=== PATIENT | male | born 1965 | race Caucasian/White ===

== ENCOUNTER 2018-05-03 11:56 | Inpatient (IN) | payer BC ==
[2018-05-03] MEDS ORDERED: LEVALBUTEROL 1.25 MG/3 ML NEB ONE ×2 (13:10→15:48)
[2018-05-03] MEDS ORDERED: NA CHLORIDE 0.9% 500 ML ONE (13:10)
[2018-05-03] MEDS ORDERED: METHYLPREDNISOLONE 125 MG INJ ONE (13:10)
[2018-05-03] MEDS ORDERED: CEFTRIAXONE/SWI 1gm 1 GM/10 ML SYR ONE (13:11)
[2018-05-03 13:34] LABS: Protime INR 1.07
[2018-05-03 13:35] LABS: Absolute Lymphocytes (CBC) 1.3 K/uL (0.7-4.9); Absolute Monocytes 1.1 K/uL (0.1-1.3); Absolute Neutrophil 10.6 K/uL (1.8-8.0); Basophils % 0.7 % (0-1.3); Hematocrit 56.9 % (39.6-49.0); Lymphocytes % 9.3 % (15.3-44.8); MCV 98.9 fL (80-100); MPV 9.5 fL (7.6-11.3); Monocytes % 7.9 % (3.3-12.3); RBC Red Blood Cell Count 5.75 M/uL (4.33-5.43)
[2018-05-03 13:39] LABS: Potassium 4.2 mEq/L (3.6-5.0)
[2018-05-03 13:45] LABS: Albumin 4.8 g/dL (3.2-5.5); Bilirubin Direct 0.2 mg/dL (0-0.2); Bilirubin Total 0.7 mg/dL (0.3-1.2); Magnesium 2.2 mg/dL (1.8-2.5)
--- NOTE | 2018-05-03 14:06 | EKG ---
Test Date: 2018-05-03 Test Time: 12:09:26 Economic Consultant: BELA MEASUREMENT RESULTS: Intervals: Rate: 121 KS: 130 QRSD: 86 QT: 302 QTc: 428 [place]: P: 79 KS: 130 QRS: 70 T: 69 INTERPRETIVE STATEMENTS: Sinus tachycardia Biatrial enlargement Abnormal ECG No previous ECG available for comparison Electronically Signed On 05-03-18 14:05:33 CDT by El Flower
--- NOTE | 2018-05-03 14:23 | RAD REPORT ---
EXAM DESCRIPTION: Anya Single View05/03/2018 1:20 pm CLINICAL HISTORY: Shortness of breath COMPARISON: none FINDINGS: The lungs appear clear of acute infiltrate. The heart is normal size IMPRESSION: No acute abnormalities displayed. If patient's symptoms persist PA and lateral chest se luis would be recommended
[2018-05-03 15:31] LABS: Urine Blood NEGATIVE (NEG); Urine Glucose NEGATIVE (NEG); Urine Protein NEGATIVE (NEG); Urine Specific Gravity 1.015 (1.005-1.030); Urine pH 6.5 (5.0-7.0)
--- NOTE | 2018-05-03 15:59 | ER ---
Nurse's Notes [facility] Name: Huseyin Carreno Age: 52 yrs Sex: Male : 1965 Arrival Date: 05/03/2018 Time: 11:55 Bed 8 Private MD: Diagnosis: Failed outpatient treatment, COPD exacerbation Presentation: 05/03 11:55 Presenting complaint: Patient states: SOB. Pt states "It all started about 10 days ago aa5 when I was working and it was really hot and I got short of breath". Pt states "I've also been taking antibiotics for Pneumonia but they never did an x-ray or anything". Transition of care: patient was not received from another setting of care. Onset of symptoms was April 2018. Risk Assessment: Do you want to hurt yourself or someone else? Patient reports no desire to harm self or others. Care prior to arrival: None. 11:55 Method Of Arrival: Wheelchair aa5 11:55 Acuity: ZACK 3 aa5 13:20 Initial Sepsis Screen: Does the patient meet any 2 criteria? RR > 20 per min. HR > 90 sv bpm. Yes Does the patient have a suspected source of infection? No. Patient's initial sepsis screen is negative. Historical: - Allergies: 11:57 No Known Allergies; aa5 - PMHx: 11:57 COPD; Hypertension; aa5 - PSHx: 11:57 None; aa5 - Immunization history:: Pneumococcal vaccine status is unknown. - Social history:: Smoking status: Patient uses tobacco products, smokes one pack cigarettes per day. - Ebola Screening: : No symptoms or risks identified at this time. Screenin:20 Abuse screen: Denies threats or abuse. Denies injuries from another. Nutritional sv screening: No deficits noted. Tuberculosis screening: No symptoms or risk factors identified. Fall Risk None identified. Assessment: 13:15 General: Appears uncomfortable, well developed, Behavior is calm, cooperative, sv appropriate for age. Pain: Denies pain. Neuro: Level of Consciousness is awake, alert, obeys commands, Oriented to person, place, time, situation, Moves all extremities. Full function Gait is steady, Speech is normal. Cardiovascular: Heart tones S1 S2 present Patient's skin is warm and dry. Rhythm is sinus tachycardia. Respiratory: Reports shortness of breath at rest on exertion cough that is productive, persistent labored breathing since 10 days ago, pt stated that he went to see his PCP and was prescribed medications but his breathing has not improved. Airway is patent Respiratory effort is even, labored, Respiratory pattern is symmetrical, tachypnea Breath sounds are diminished bilaterally. GI: No signs and/or symptoms were reported involving the gastrointestinal system. : No signs and/or symptoms were reported regarding the genitourinary system. EENT: No signs and/or symptoms were reported regarding the EENT system. Derm: Skin is normal. Musculoskeletal: Range of motion: intact in all extremities. 13:45 Reassessment: Patient and/or family updated on plan of care and expected duration. Pain sv level reassessed. Patient is alert, oriented x 3, equal unlabored respirations, skin warm/dry/pink. Respiratory: Respiratory effort is even, labored, Respiratory pattern is symmetrical, tachypnea Breath sounds with wheezes bilaterally. 15:50 Reassessment: Patient and/or family updated on plan of care and expected duration. Pain sv level reassessed. Patient is alert, oriented x 3, equal unlabored respirations, skin warm/dry/pink. Respiratory: Respiratory effort is even, labored, Respiratory pattern is symmetrical, tachypnea Breath sounds with wheezes bilaterally. 16:15 Reassessment: Patient and/or family updated on plan of care and expected duration. Pain sv level reassessed. Patient is alert, oriented x 3, equal unlabored respirations, skin warm/dry/pink. Respiratory: Respiratory effort is even, unlabored, Respiratory pattern is symmetrical, tachypnea Breath sounds with wheezes bilaterally. 17:45 Reassessment: Patient and/or family updated on plan of care and expected duration. Pain sv level reassessed. Patient is alert, oriented x 3, equal unlabored respirations, skin warm/dry/pink. Patient states feeling better. Respiratory: Respiratory pattern is symmetrical, tachypnea. 19:46 Reassessment: Patient and/or family updated on plan of care and expected duration. Pain mg2 level reassessed. Patient is alert, oriented x 3, equal unlabored respirations, skin warm/dry/pink. patient sitting on bed. informed about the plan, still awaiting for the room. Vital Signs: 11:57 BP 167 / 103; Pulse 123; Resp 24 S; Temp 98.7(TE); Pulse Ox 90% on R/A; Weight 90.26 kg aa5 (R); Height 5 ft. 5 in. (165.10 cm) (R); Pain 0/10; 12:00 Pulse Ox 91% on 2 lpm NC; aa5 12:54 BP 183 / 109; Pulse 120; Resp 26; Pulse Ox 93% on 3 lpm NC; sv 13:30 BP 189 / 101; Pulse 126; Resp 29; Pulse Ox 94% on 3 lpm NC; sv 14:00 BP 167 / 90; Pulse 114; Resp 22; Pulse Ox 96% on 3 lpm NC; sv 14:30 BP 157 / 104; Pulse 113; Resp 22; Pulse Ox 97% on 3 lpm NC; sv 15:00 BP 176 / 107; Pulse 115; Resp 26; Pulse Ox 96% on 3 lpm NC; sv 15:30 BP 191 / 107; Pulse 113; Resp 26; Pulse Ox 94% on 3 lpm NC; sv 16:00 BP 176 / 105; Pulse 125; Resp 28; Pulse Ox 93% on 3 lpm NC; sv 16:30 BP 181 / 100; Pulse 122; Resp 24; Pulse Ox 3 lpm NC; sv 17:00 BP 182 / 99; Pulse 124; Resp 21; Pulse Ox 95% on 3 lpm NC; sv 17:57 BP 157 / 97; Pulse 118; Resp 26; Pulse Ox 94% on 3 lpm NC; sv 19:48 BP 170 / 85; Pulse 114; Resp 22; Pulse Ox 93% on 3 lpm NC; Pain 0/10; mg2 11:57 Body Mass Index 33.11 (90.26 kg, 165.10 cm) aa5 ED Course: 11:55 Patient arrived in ED. aa5 11:57 Triage completed. aa5 11:57 Arm band placed on. aa5 12:15 EKG done, by analytical tech. reviewed by Sumanth Nava MD. at1 12:32 Sumanth Nava MD is Attending Physician. kdr 12:50 First set of blood cultures drawn by wa. em1 13:01 Initial lab(s) drawn, by wa, sent to lab. Inserted saline lock: 20 gauge in right em1 antecubital area, using aseptic technique. Blood collected. 13:02 Reba Schuster RN is Primary Nurse. sv 13:15 Second set of blood cultures drawn by me. em1 13:20 XRAY Chest (1 view) In Process Unspecified. EDMS 13:20 X-ray completed. Portable x-ray completed in exam room. Patient tolerated procedure jb2 well. 13:20 Patient has correct armband on for positive identification. Bed in low position. Call sv light in reach. Side rails up X 1. Adult w/ patient. threat monitoring analyst on. Pulse ox on. NIBP on. Door closed. Head of bed elevated. 15:58 Pamela Urbina MD is Hospitalizing Provider. kdr 16:44 CT completed. Patient tolerated procedure well. Patient moved to CT via stretcher. vr Patient moved back from CT. 17:26 CT Chest For PE Angio Sent. sv 19:10 Report given to Tabby DEWITT and Karel DEWITT. sv 20:01 Primary Nurse role handed off by Reba Schuster RN sv 20:09 Pantera Suarez, ESDRAS is Primary Nurse. mg2 20:19 No provider procedures requiring assistance completed. Patient admitted, IV remains in mg2 place. Administered Medications: 13:20 Drug: SOLU-Medrol 125 mg Route: IVP; Site: right antecubital; sv 15:44 Follow up: Response: No adverse reaction sv 13:20 Drug: Xopenex (3) 1.25 mg Route: Inhalation; sv 13:20 Drug: NS 0.9% 500 ml Route: IV; Rate: bolus; Site: right antecubital; sv 13:50 Follow up: Response: No adverse reaction; IV Status: Completed infusion; IV Intake: sv 500ml 13:24 CANCELLED (Duplicate Order): Rocephin - (cefTRIAXone) 1 grams IVPB once over 30 mins; sv (mix in 50 mL NS) 13:25 Drug: Rocephin 1 grams Route: IV; Rate: calculated rate; Site: right antecubital; sv 13:30 Follow up: Response: No adverse reaction; IV Status: Completed infusion; IV Intake: 10mlsv 15:51 Drug: Xopenex (3) 1.25 mg Route: Inhalation; sv 16:19 Drug: cloNIDine 0.2 mg Route: PO; sv 17:26 Follow up: Response: No adverse reaction sv Intake: 13:30 IV: 10ml; Total: 10ml. sv 13:50 IV: 500ml; Total: 510ml. sv Output: 14:00 Urine: 300ml (Voided); Total: 300ml. sv 16:26 Urine: 300ml (Voided); Total: 600ml. sv Outcome: 15:59 Decision to Hospitalize by Provider. kdr 20:19 Admitted to Med/surg accompanied by nurse, via wheelchair, room 213, with oxygen, with mg2 chart, Report called to ESDRAS Moon 20:19 Condition: stable 20:19 Instructed on the need for admit, Demonstrated understanding of instructions. 21:08 Patient left the ED. mg2 Signatures: Dispatcher [employer] EDReba Lezama, RN RN Sumanth Ellsworth MD MD kdr Buechter, Jesse jb2 Martinez, Eric em1 Catrachita Quach, RN RN Esther Rivero Amanda, sorter lumber straightener EKG Tat1 Pantera Suarez RN RN mg2 Corrections: (The following items were deleted from the chart) 19:15 16:30 BP 181 / 100; Pulse 122bpm; Resp 24bpm; Pulse Ox 95% 02 15% Non-rebreather mask; sv sv 19:15 17:00 BP 182 / 99; Pulse 124bpm; Resp 21bpm; Pulse Ox 94% 02 15% Non-rebreather mask; svsv
--- NOTE | 2018-05-03 15:59 | EDPHYS ---
Physician Documentation [facility] Name: Huseyin Carreno Age: 52 yrs Sex: Male : 1965 Arrival Date: 05/03/2018 Time: 11:55 Bed 8 Private MD: ED Physician Sumanth Nava Historical: - Allergies: 05/03 11:57 No Known Allergies; aa5 - PMHx: 11:57 COPD; Hypertension; aa5 - PSHx: 11:57 None; aa5 - Immunization history:: Pneumococcal vaccine status is unknown. - Social history:: Smoking status: Patient uses tobacco products, smokes one pack cigarettes per day. - Ebola Screening: : No symptoms or risks identified at this time. Vital Signs: 11:57 BP 167 / 103; Pulse 123; Resp 24 S; Temp 98.7(TE); Pulse Ox 90% on R/A; Weight 90.26 kg aa5 (R); Height 5 ft. 5 in. (165.10 cm) (R); Pain 0/10; 12:00 Pulse Ox 91% on 2 lpm NC; aa5 12:54 BP 183 / 109; Pulse 120; Resp 26; Pulse Ox 93% on 3 lpm NC; sv 13:30 BP 189 / 101; Pulse 126; Resp 29; Pulse Ox 94% on 3 lpm NC; sv 14:00 BP 167 / 90; Pulse 114; Resp 22; Pulse Ox 96% on 3 lpm NC; sv 14:30 BP 157 / 104; Pulse 113; Resp 22; Pulse Ox 97% on 3 lpm NC; sv 15:00 BP 176 / 107; Pulse 115; Resp 26; Pulse Ox 96% on 3 lpm NC; sv 15:30 BP 191 / 107; Pulse 113; Resp 26; Pulse Ox 94% on 3 lpm NC; sv 16:00 BP 176 / 105; Pulse 125; Resp 28; Pulse Ox 93% on 3 lpm NC; sv 16:30 BP 181 / 100; Pulse 122; Resp 24; Pulse Ox 3 lpm NC; sv 17:00 BP 182 / 99; Pulse 124; Resp 21; Pulse Ox 95% on 3 lpm NC; sv 17:57 BP 157 / 97; Pulse 118; Resp 26; Pulse Ox 94% on 3 lpm NC; sv 19:48 BP 170 / 85; Pulse 114; Resp 22; Pulse Ox 93% on 3 lpm NC; Pain 0/10; mg2 11:57 Body Mass Index 33.11 (90.26 kg, 165.10 cm) aa5 MDM: 15:59 Patient medically screened. kdr 05/03 12:32 Order name: Basic Metabolic Panel; Complete Time: 15:31 kdr 05/03 12:32 Order name: BNP; Complete Time: 15:31 kdr 05/03 12:32 Order name: CBC with Diff; Complete Time: 15:31 kdr 05/03 12:32 Order name: Ckmb; Complete Time: 15:31 kdr 05/03 12:32 Order name: CPK; Complete Time: 15:31 kdr 05/03 12:32 Order name: LFT's; Complete Time: 15:31 kdr 05/03 12:32 Order name: Magnesium; Complete Time: 15:31 kdr 05/03 12:32 Order name: PT-INR; Complete Time: 15:31 kdr 05/03 12:32 Order name: Ptt, Activated; Complete Time: 15:31 kdr 05/03 12:32 Order name: Troponin (emerg Dept Use Only); Complete Time: 15:31 kdr 05/03 12:32 Order name: XRAY Chest (1 view); Complete Time: 15:31 kdr 05/03 12:32 Order name: Blood Culture Adult (2) kdr 05/03 14:01 Order name: Urine Dipstick--Ancillary (enter results); Complete Time: 15:36 ss 05/03 15:38 Order name: CT Chest For PE Angio kdr 05/03 12:32 Order name: EKG; Complete Time: 12:33 kdr 05/03 12:32 Order name: Cardiac monitoring; Complete Time: 17:53 kdr 05/03 12:32 Order name: EKG - Nurse/Tech; Complete Time: 17:53 kdr 05/03 12:32 Order name: IV Saline Lock; Complete Time: 13:01 kdr 05/03 12:32 Order name: Labs collected and sent; Complete Time: 13:01 kdr 05/03 12:32 Order name: O2 Per Protocol; Complete Time: 17:53 kdr 05/03 12:32 Order name: O2 Sat Monitoring; Complete Time: 17:53 kdr 05/03 17:12 Order name: CT; Complete Time: 18:14 EDMS 06/15 18:15 Order name: Diet Heart Healthy; Complete Time: 18:15 ss 05/03 12:32 Order name: Urine Dipstick-Ancillary (obtain specimen); Complete Time: 17:53 kdr Administered Medications: 13:20 Drug: SOLU-Medrol 125 mg Route: IVP; Site: right antecubital; sv 15:44 Follow up: Response: No adverse reaction sv 13:20 Drug: Xopenex (3) 1.25 mg Route: Inhalation; sv 13:20 Drug: NS 0.9% 500 ml Route: IV; Rate: bolus; Site: right antecubital; sv 13:50 Follow up: Response: No adverse reaction; IV Status: Completed infusion; IV Intake: sv 500ml 13:24 CANCELLED (Duplicate Order): Rocephin - (cefTRIAXone) 1 grams IVPB once over 30 mins; sv (mix in 50 mL NS) 13:25 Drug: Rocephin 1 grams Route: IV; Rate: calculated rate; Site: right antecubital; sv 13:30 Follow up: Response: No adverse reaction; IV Status: Completed infusion; IV Intake: 10mlsv 15:51 Drug: Xopenex (3) 1.25 mg Route: Inhalation; sv 16:19 Drug: cloNIDine 0.2 mg Route: PO; sv 17:26 Follow up: Response: No adverse reaction sv Disposition: 05/03/18 15:59 Hospitalization ordered by Pamela Urbina for Observation. Preliminary diagnosis is Failed outpatient treatment, COPD exacerbation. - Bed requested for Telemetry/MedSurg (observation). - Status is Observation. mg2 - Condition is Fair. - Problem is an ongoing problem. - Symptoms have improved. UTI on Admission? No Addendum: 05/20/2018 16:44 Addendum: CC: SOB HPI: The patient states that he was working outside about [address] and became SOB. He has had slowly worsening SOB. He denies any other or other focal ? . Addendum: ROS: Const: No fever, chills or weight loss Eyes: no visual changes or c/o, Neck: no pain or injury, CV: no CP or palpitations, Resp: SOB especially with exertion, mild cough, congestion or wheezing Abd: no n/v/d or pain, Back: no pain or injury, : no pain or bleeding, MS/Ext: no pain, injury, swelling, tingling, Skin: no lacerations, pain, injury, skin turgor good, Neuro: CN grossly intact and no other deficits, Psych: Appropriate for age, Allergy/Immunology: no rashes or other s/s, Endo: no evidence of polyuria, polydipsia, temperature control or other s/s . Addendum: Exam: Const: WDWN WM in mild distress, Head/Face: no injury, pain or deformity, Eyes: PERRLA, ENT: no pain, injury or bleeding, Neck: no pain, injury or deformity, full ROM Chest/Axilla: No pain, injury or deformity, CV: no rubs, gallops, murmurs, regular rate, Resp: Mildly labors breathing with wheezing inspiratory/expiratory Abd/GI: soft, NT, BS present in all quads and normal, Back: no injury or deformity, full ROM, MS/Extremity: no injury or deformity, FROM, distal pulses good and equal, Skin: no rashes, ecchymosis skin turgor good, Neuro: CN grossly intact, no other neuro deficits, Psych: appropriate for age, no SI/HI, no depression . Addendum: MDM (Admission - stable) All VS and nursing notes reviewed. The patient and/or family was counseled on the results and need for admission. The patient was admitted in stable condition. They were happy with the care received and the plan for admission and further evaluation and treatment. . Signatures: Dispatcher [employer] EDAdalgisa Brewer RN RN kl Verde, Stephanie, RN RN sv Rittger, Kevin, MD MD kdr Calderon, Audri, RN RN aa5 Pantera Suarez RN RN mg2 Corrections: (The following items were deleted from the chart) 05/03 13:24 13:03 Rocephin - (cefTRIAXone) 1 grams IVPB once over 30 mins; (mix in 50 mL NS) sv ordered. kdr 20:01 15:59 Hospitalization Ordered by Pamela Urbina MD for Observation. Preliminary kl diagnosis is Failed outpatient treatment, COPD exacerbation. Bed requested for Telemetry/MedSurg (observation). Status is Observation. Condition is Fair. Problem is an ongoing problem. Symptoms have improved. UTI on Admission? No. kdr 21:08 20:01 05/03/2018 15:59 Hospitalization Ordered by Pamela Urbina MD for Observation. mg2 Preliminary diagnosis is Failed outpatient treatment, COPD exacerbation. Bed requested for Telemetry/MedSurg (observation). Status is Observation. Condition is Fair. Problem is an ongoing problem. Symptoms have improved. UTI on Admission? No. kl
[2018-05-03] MEDS ORDERED: cloNIDine HCl 0.1 MG TAB ONE (16:16)
--- NOTE | 2018-05-03 17:12 | RAD REPORT ---
EXAM DESCRIPTION: CT - Chest For Pe Angio - 05/03/2018 4:58 pm CLINICAL HISTORY: Chest pain. Chest pain;COPD;Cough;Fever COMPARISON: Chest Single View dated 05/03/2018 TECHNIQUE: CT angiogram of the pulmonary arteries was performed with MIP. All CT scans are performed using dose optimization technique as appropriate and may include automated exposure control or mA/KV adjustment according to patient size. FINDINGS: No evidence of pulmonary thromboembolism. No acute aortic finding demonstrated. Small areas of ground-glass opacity in both posterior bases as well as the lingula and right middle l obe may represent alveolitis/atypical pneumonia. No significant pericardial or pleural fluid. No concerning bony finding. IMPRESSION: No evidence of pulmonary thromboembolism. Scattered areas of ground-glass opacity greatest in the lung bases probably represents alveolitis/aty pical pneumonia.
[2018-05-03] MEDS ORDERED: IPRATROPIUM BROM 0.5MG/2.5ML ONE ×2 (20:30→23:16)
[2018-05-03] MEDS ORDERED: ALBUTEROL 2.5 MG/3 ML NEB SOL ONE ×2 (20:30→23:16)
[2018-05-03] MEDS ORDERED: ALBUTEROL 2.5 MG/3 ML NEB SOL NEB SCH (21:21)
[2018-05-03] MEDS ORDERED: IPRATROPIUM BROM 0.5MG/2.5ML NEB SCH (21:21)
[2018-05-03] MEDS ORDERED: ACETAMINOPHEN 500 MG TAB PO PRN (21:21)
--- NOTE | 2018-05-03 21:44 | P.HP ---
Certification for Inpatient With expected LOS: >2 Midnights Patient will require the following post-hospital care: None Practitioner: I am a practitioner with admitting privileges, knowledge of patient current condition, hospital course, and medical plan of care. Services: Services provided to patient in accordance with Admission requirements found in Title 42 Section 412.3 of the Code of Federal Regulations Patient History Date of Service: 05/03/18 Primary Care Provider: Out of State Reason for admission: COPD exacerbation History of Present Illness: Pt states he went to his work clinic 10 days ago. Placed on cipro without improvement in his symptoms. Returned to clinic 5 days ago and pt rec'd second antibiotic of omnicef. Pt states he has not been able to walk ten yards without fatigue and even had a syncopal episode last pm trying to get to the bathroom. Left forehead contusion. No vomiting, headache, or altered mental state Allergies No Known Allergies Allergy (Unverified 05/03/18 19:10) Home medications list reviewed: Yes (Lisinopril 20mg po daily) - Past Medical/Surgical History Has patient received pneumonia vaccine in the past: No Diabetic: No -: COPD -: HTN Past Surgical History: Patient denies surgical history Psychosocial/ Personal History: Pt working down here from [place]. Lives with Spouse. Pt and have 2 children - Family History Family History: Reviewed- Non-Contributory - Social History Smoking Status: Current every day smoker Counseled patient to stop smoking for: less than 10 minutes Smoking therapy provided: No Patient receptive to therapy: No Alcohol use: Yes CD- Drugs: No Caffeine use: No Place of Residence: Home Review of Systems General: Chills, Weakness, Malaise Eyes: Unremarkable ENT: Unremarkable Respiratory: Cough, Shortness of Breath, SOB with Excertion, Pleuritic Pain, Wheezing Cardiovascular: Chest Pain, Light Headedness Gastrointestinal: Unremarkable Genitourinary: Unremarkable Musculoskeletal: Unremarkable Integumentary: Unremarkable Neurological: Weakness, As per HPI Lymphatics: Unremarkable Physical Examination - Vital Signs Temperature: 98.5 F Blood Pressure: 173/83 Pulse: 121 Respirations: 18 Pulse Ox (%): 92 - Physical Exam General: Alert, In no apparent distress, Disheveled, Mild distress HEENT: Atraumatic, Normocephalic Neck: 2+ carotid pulse no bruit Respiratory: Expiratory wheezes, Inspiratory wheezes Cardiovascular: No edema Capillary refill: <2 Seconds Gastrointestinal: Normal bowel sounds Musculoskeletal: No clubbing, No swelling Integumentary: No rashes, No breakdown Neurological: Abnormal strength Lymphatics: No axilla or inguinal lymphadenopathy External genitalia: Deferred Rectal: Deferred - Studies Laboratory Data (last 24 hrs) 05/03/18 12:50: PT 12.6 H, INR 1.07, APTT 28.5 05/03/18 12:50: WBC 14.1 H, Hgb 19.0 H, Hct 56.9 H, Plt Count 206 05/03/18 12:50: B-Natriuretic Peptide 12 05/03/18 12:50: Sodium 138, Potassium 4.2, BUN 11, Creatinine 0.97, Glucose 120 , Magnesium 2.2, Total Bilirubin 0.7, AST 43 H, ALT 63 H, Alkaline Phosphatase 111 Assessment and Plan - Problems (Diagnosis) (1) Pneumonia Current Visit: Yes Status: Acute Plan: Levaquin po 500mg Qualifiers: Pneumonia type: due to unspecified organism (2) COPD (chronic obstructive pulmonary disease) Current Visit: Yes Status: Acute Plan: IV steroids, neb treatment, O2 prn, continuous pulse ox Qualifiers: COPD type: COPD with acute exacerbation Qualified Code(s): J44.1 - Chronic obstructive pulmonary disease with (acute) exacerbation - Advance Directives Does patient have a Living Will: No Does patient have a Durable POA for Healthcare: No
[2018-05-03] MEDS: ENOXAPARIN 40 MG/0.4 ML SQ SCH (21:55)
[2018-05-03] MEDS: NA CHLORIDE 0.9% 1,000 ML IV SCH (21:55)
[2018-05-03] MEDS: METHYLPREDNISOLONE 40 MG INJ IV SCH (21:55)
[2018-05-03] MEDS: ALBUTEROL 2.5 MG/3 ML NEB SOL NEB SCH (23:20)
[2018-05-03] MEDS: IPRATROPIUM BROM 0.5MG/2.5ML NEB SCH (23:20)
[2018-05-04] MEDS: METHYLPREDNISOLONE 40 MG INJ IV SCH ×3 (00:06→16:52)
[2018-05-04] MEDS: ALBUTEROL 2.5 MG/3 ML NEB SOL NEB SCH ×3 (04:02→11:16)
[2018-05-04] MEDS: IPRATROPIUM BROM 0.5MG/2.5ML NEB SCH ×5 (04:02→19:40)
[2018-05-04 05:22] LABS: Absolute Lymphocytes (CBC) 0.8 K/uL (0.7-4.9); Absolute Monocytes 0.1 K/uL (0.1-1.3); Absolute Neutrophil 14.6 K/uL (1.8-8.0); Basophils % 0.1 % (0-1.3); Hematocrit 51.1 % (39.6-49.0); Lymphocytes % 4.9 % (15.3-44.8); MCH 33.2 pg (27.0-35.0); Monocytes % 0.9 % (3.3-12.3); RBC Red Blood Cell Count 5.16 M/uL (4.33-5.43)
[2018-05-04 05:31] LABS: Potassium 4.8 mEq/L (3.6-5.0)
[2018-05-04] MEDS: NA CHLORIDE 0.9% 1,000 ML IV SCH (05:31)
[2018-05-04] MEDS ORDERED: PNEUMOCOCCAL VACCINE 0.5 ML IMVAC ONE (06:00)
[2018-05-04 06:20] LABS: Blood Morphology Comment NOT SEEN (NOT SEEN); Platelet Estimate ADEQ
[2018-05-04] MEDS ORDERED: HYDRALAZINE HCL 20 MG/ML VIAL IV ONE (06:40)
[2018-05-04] MEDS: levoFLOXacin 500 MG TAB PO SCH (08:13)
[2018-05-04] MEDS: ASPIRIN EC 81 MG TAB PO SCH (08:14)
[2018-05-04] MEDS: LORazepam 2 MG/ML VIAL IV PRN (09:57)
[2018-05-04] MEDS: LISINOPRIL 20 MG TAB PO SCH ×2 (11:38→21:12)
--- NOTE | 2018-05-04 11:38 | P.PN ---
Subjective Date of Service: 05/04/18 Primary Care Provider: Out of State Chief Complaint: COPD exacerbation Subjective: Improving (Patient was a little agitated today he is an alcoholic also smoker complains of orthopnea doing better at the time of my evaluation he was struggling this morning a BiPAP ordered) Review of Systems Respiratory: Cough, Shortness of Breath Physical Examination - Vital Signs Temperature: 98.3 F Blood Pressure: 179/89 Pulse: 129 Respirations: 54 Pulse Ox (%): 97 - Physical Exam General: Alert, Oriented x3 HEENT: Atraumatic Neck: Supple Respiratory: Expiratory wheezes Cardiovascular: No edema, Normal S1 S2 Gastrointestinal: Normal bowel sounds, Soft and benign - Studies Laboratory Data (last 24 hrs) 05/03/18 12:50: PT 12.6 H, INR 1.07, APTT 28.5 05/03/18 12:50: WBC 14.1 H, Hgb 19.0 H, Hct 56.9 H, Plt Count 206 05/03/18 12:50: B-Natriuretic Peptide 12 05/03/18 12:50: Sodium 138, Potassium 4.2, BUN 11, Creatinine 0.97, Glucose 120 , Magnesium 2.2, Total Bilirubin 0.7, AST 43 H, ALT 63 H, Alkaline Phosphatase 111 Assessment & Plan - Problems (Diagnosis) (1) COPD exacerbation Current Visit: Yes Status: Acute Plan: Tobar is 52 years of age she lives in [place] in not see a regular physician was admitted with a 10 day history of worsening cough congestion shortness of breath is a smoker alcoholic most likely years an exacerbation of underlying COPD patient's blood pressure is little elevated continue with bronchodilators steroids add Dulera possible discharge tomorrow (2) Alcohol abuse Current Visit: Yes Status: Acute Plan: Patient is 52 years of age alcoholic continue with Ativan and thiamine (3) Hypertension Current Visit: Yes Status: Acute Plan: Resume home medications Qualifiers: Hypertension type: essential hypertension Qualified Code(s): I10 - Essential (primary) hypertension
[2018-05-04] MEDS: METOPROLOL TAR 25 MG TAB PO SCH ×2 (15:48→16:54)
[2018-05-04] MEDS: ENOXAPARIN 40 MG/0.4 ML SQ SCH (16:52)
[2018-05-04] MEDS: DULERA 200/5 (MOMETASONE/FORMOTEROL) INHALER IH SCH (21:09)
[2018-05-04] MEDS: LORAZEPAM 1 MG TABLET PO PRN (21:12)
[2018-05-05] MEDS: METHYLPREDNISOLONE 40 MG INJ IV SCH ×3 (01:05→18:03)
[2018-05-05] MEDS: ALBUTEROL 2.5 MG/3 ML NEB SOL NEB PRN ×3 (01:14→13:15)
[2018-05-05] MEDS: IPRATROPIUM BROM 0.5MG/2.5ML NEB SCH ×4 (01:15→20:48)
[2018-05-05] MEDS: LORazepam 2 MG/ML VIAL IV PRN ×3 (01:27→20:32)
[2018-05-05] MEDS: LORAZEPAM 1 MG TABLET PO PRN (04:29)
[2018-05-05] MEDS: METOPROLOL TAR 25 MG TAB PO SCH ×2 (05:07→18:05)
[2018-05-05 05:13] LABS: MCH 33.4 pg (27.0-35.0); MCV 100.6 fL (80-100); MPV 9.9 fL (7.6-11.3); RBC Red Blood Cell Count 4.98 M/uL (4.33-5.43)
[2018-05-05 06:18] LABS: Potassium 4.9 mEq/L (3.6-5.0); Thyroid Stimulating Hormone 1.24 uIU/mL (0.34-5.60)
[2018-05-05] MEDS: LISINOPRIL 20 MG TAB PO SCH ×2 (08:35→20:32)
[2018-05-05] MEDS: MULTIVITAMIN TAB PO SCH (08:35)
[2018-05-05] MEDS: levoFLOXacin 500 MG TAB PO SCH (08:35)
[2018-05-05] MEDS: DULERA 200/5 (MOMETASONE/FORMOTEROL) INHALER IH SCH (08:38)
[2018-05-05] MEDS: ASPIRIN EC 81 MG TAB PO SCH (08:43)
[2018-05-05] MEDS ORDERED: THIAMINE HCL 100 MG TABLET PO SCH (09:00)
--- NOTE | 2018-05-05 10:37 | P.PN ---
Subjective Date of Service: 05/05/18 Primary Care Provider: Out of State Chief Complaint: COPD exacerbation alcohol withdrawal Patient is hallucinating agitated and requiring Ativan currently on BiPAP at bedside Review of Systems is unable to be obtained Physical Examination - Vital Signs Temperature: 99.1 F Blood Pressure: 173/92 Pulse: 105 Respirations: 24 Pulse Ox (%): 91 - Physical Exam General: Unresponsive Respiratory: Expiratory wheezes Cardiovascular: No edema, Normal S1 S2 Assessment & Plan - Problems (Diagnosis) (1) COPD exacerbation Current Visit: Yes Status: Acute Plan: Patient admitted with COPD exacerbation continue with bronchodilators and steroids (2) Alcohol abuse Current Visit: Yes Status: Acute Plan: Alcohol withdrawal continue with thiamine and Ativan start patient on banana bag (3) Hypertension Current Visit: Yes Status: Acute Plan: Resume home medications blood pressure still elevated Qualifiers: Hypertension type: essential hypertension Qualified Code(s): I10 - Essential (primary) hypertension (4) Pneumonia Current Visit: Yes Status: Acute Plan: Patient's white count is increased significantly add Zosyn repeat chest x-ray cultures are so far negative Qualifiers: Pneumonia type: due to unspecified organism
[2018-05-05] MEDS ORDERED: Pharmacy Consult 1 EA XX PRN (10:38)
[2018-05-05] MEDS: PIPER/TAZO/NS 3.375gm 3.375 GM/100 ML BAG IVPB SCH ×2 (11:40→18:03)
[2018-05-05] MEDS: FOLIC ACID 1 MG, MULTIVITAMINS INJ 10 ML, THIAMINE HCL 100 MG in NA CHLORIDE 0.9% 1,000 ML IV SCH (11:40)
--- NOTE | 2018-05-05 12:30 | RAD REPORT ---
EXAM DESCRIPTION: RAD - Chest Single View - 05/05/2018 12:24 pm CLINICAL HISTORY: Possible pneumonia Chest pain. COMPARISON: Chest Single View dated 05/03/2018; Chest For Pe Angio dated 05/03/2018 FINDINGS: Portable technique limits examination quality. Ill-defined opacities in the medial right lung base appear unchanged to slightly progressive. The linnette gs are otherwise clear. The heart is upper limit normal in size. No displaced fractures. IMPRESSION: Slight progression in ill-defined opacities medial right lung base.
[2018-05-05] MEDS ORDERED: VANCOMYCIN 2.25 GM in NA CHLORIDE 0.9% 500 ML IVPB ONE (16:00)
[2018-05-05] MEDS: ENOXAPARIN 40 MG/0.4 ML SQ SCH (18:03)
[2018-05-05] MEDS: ARFORMOTEROL TARTRATE 15 MCG/2 ML VIAL.NEB NEB SCH (20:48)
[2018-05-06] MEDS: PIPER/TAZO/NS 3.375gm 3.375 GM/100 ML BAG IVPB SCH ×3 (00:54→17:40)
[2018-05-06] MEDS: METHYLPREDNISOLONE 40 MG INJ IV SCH ×2 (00:55→09:26)
[2018-05-06] MEDS: IPRATROPIUM BROM 0.5MG/2.5ML NEB SCH ×4 (01:50→19:42)
[2018-05-06] MEDS: LORazepam 2 MG/ML VIAL IV PRN (04:26)
[2018-05-06 05:04] LABS: Absolute Lymphocytes (CBC) 0.5 K/uL (0.7-4.9); Absolute Monocytes 0.7 K/uL (0.1-1.3); Absolute Neutrophil 18.9 K/uL (1.8-8.0); Basophils % 0.4 % (0-1.3); Hematocrit 50.5 % (39.6-49.0); Lymphocytes % 2.5 % (15.3-44.8); MCH 33.4 pg (27.0-35.0); MPV 9.9 fL (7.6-11.3); Monocytes % 3.2 % (3.3-12.3); RBC Red Blood Cell Count 4.99 M/uL (4.33-5.43)
[2018-05-06] MEDS: METOPROLOL TAR 25 MG TAB PO SCH (05:32)
[2018-05-06 05:36] LABS: Albumin 3.6 g/dL (3.2-5.5); Bilirubin Total 0.5 mg/dL (0.3-1.2); Potassium 4.7 mEq/L (3.6-5.0)
[2018-05-06] MEDS: ARFORMOTEROL TARTRATE 15 MCG/2 ML VIAL.NEB NEB SCH ×2 (07:47→19:42)
[2018-05-06] MEDS: FOLIC ACID 1 MG, MULTIVITAMINS INJ 10 ML, THIAMINE HCL 100 MG in NA CHLORIDE 0.9% 1,000 ML IV SCH (09:26)
[2018-05-06] MEDS: LISINOPRIL 20 MG TAB PO SCH ×2 (09:26→21:08)
[2018-05-06] MEDS: ASPIRIN EC 81 MG TAB PO SCH (09:26)
[2018-05-06] MEDS: MULTIVITAMIN TAB PO SCH (09:26)
--- NOTE | 2018-05-06 09:44 | RAD REPORT ---
EXAM DESCRIPTION: RAD - Chest Pa And Lat (2 Views) - 05/06/2018 9:24 am CLINICAL HISTORY: COPD, pneumonia COMPARISON: May 05, May 03 TECHNIQUE: PA and lateral views of the chest were obtained. FINDINGS: The lungs are normal volume. Trachea is midline. Interstitial markings are diffusely promi nent. More pronounced interstitial and alveolar opacification in the right lung base noted and not cl early different. Heart size is normal and central vasculature is within normal limits. No pleural effusion or pneumothorax seen. No acute bony finding noted. No aortic abnormality. IMPRESSION: Patchy lung base opacities are not substantially different from May 05 comparison. No new or progressive process suspected.
[2018-05-06] MEDS ORDERED: VANCOMYCIN 1.75 GM in NA CHLORIDE 0.9% 500 ML IVPB SCH (10:00)
[2018-05-06] MEDS ORDERED: SPIRONOLACTONE 25 MG TABLET PO SCH (12:21)
--- NOTE | 2018-05-06 12:23 | P.PN ---
Subjective Date of Service: 05/06/18 Primary Care Provider: Out of State Chief Complaint: COPD exacerbation alcohol withdrawal Patient is doing better he is more alert responsive cooperative on nasal cannula oxygen Review of Systems General: Weakness Respiratory: Cough, Shortness of Breath Physical Examination - Vital Signs Temperature: 98.0 F Blood Pressure: 171/94 Pulse: 89 Respirations: 19 Pulse Ox (%): 96 - Physical Exam General: Alert, Oriented x3 Neck: Supple Respiratory: Expiratory wheezes Cardiovascular: No edema, Regular rate/rhythm Assessment & Plan - Problems (Diagnosis) (1) COPD exacerbation Onset Date: 05/06/18 Current Visit: Yes Status: Acute Plan: Patient admitted with COPD exacerbation he may well have a pneumonia is white count is declining continue with antibiotics blood cultures and negative chest x -ray abnormal patient's blood cultures and negative change to p.o. prednisone Dc vancomycin once a white count is declined significantly changed to p.o. levofloxacin (2) Alcohol abuse Onset Date: 05/06/18 Current Visit: Yes Status: Acute Plan: A patient is improving (3) Hypertension Onset Date: 05/06/18 Current Visit: Yes Status: Acute Plan: Blood pressure still elevated Qualifiers: Hypertension type: essential hypertension Qualified Code(s): I10 - Essential (primary) hypertension (4) Pneumonia Onset Date: 05/06/18 Current Visit: Yes Status: Acute Plan: Patient's white count is increased significantly add Zosyn repeat chest x-ray cultures are so far negative Qualifiers: Pneumonia type: due to unspecified organism
--- NOTE | 2018-05-06 12:47 | P.PN ---
Subjective Date of Service: 05/06/18 Primary Care Provider: Out of State Chief Complaint: COPD exacerbation alcohol withdrawal Subjective: Improving Physical Examination - Vital Signs Temperature: 98.0 F Blood Pressure: 171/94 Pulse: 89 Respirations: 19 Pulse Ox (%): 96 - Physical Exam General: Alert, In no apparent distress, Oriented x3, Cooperative HEENT: Atraumatic, Mucous membr. moist/pink Neck: Supple Respiratory: Expiratory wheezes (Bilateral) Cardiovascular: Normal pulses, Regular rate/rhythm Gastrointestinal: Normal bowel sounds, Soft and benign, Non-distended, No tenderness, No masses, No rebound, No guarding Musculoskeletal: No erythema, No tenderness, No warmth Integumentary: No tenderness/swelling, No erythema, No warmth, No cyanosis Neurological: Normal speech, Normal strength at 5/5 x4 extr, Normal tone, Normal affect - Studies Medications List Reviewed: Yes Assessment & Plan - Problems (Diagnosis) (1) Obesity Current Visit: Yes Status: Chronic Plan: Will address lifestyle modification education. Qualifiers: Obesity type: due to excess calories Obesity classification: adult class 1 (BMI 30 - 34.9) Serious obesity comorbidity presence: with serious comorbidity Body mass index: BMI 33.0-33.9 Qualified Code(s): E66.09 - Other obesity due to excess calories; Z68.33 - Body mass index (BMI) 33.0-33.9, adult (2) GERD (gastroesophageal reflux disease) Current Visit: Yes Status: Suspected Plan: Will continue with PPI. Qualifiers: Esophagitis presence: esophagitis presence not specified Qualified Code(s) : K21.9 - Gastro-esophageal reflux disease without esophagitis (3) Alcohol abuse Onset Date: 05/06/18 Current Visit: Yes Status: Chronic Plan: Address alcohol cessation. Will monitor for alcohol withdrawal. (4) COPD (chronic obstructive pulmonary disease) Onset Date: 05/06/18 Current Visit: Yes Status: Acute Plan: Continue with COPD treatment. Will monitor closely. Patient will need PCP locally along with COPD medication at discharge. Patient may require home oxygen. Qualifiers: COPD type: COPD with acute exacerbation Qualified Code(s): J44.1 - Chronic obstructive pulmonary disease with (acute) exacerbation (5) Hypertension Onset Date: 05/06/18 Current Visit: Yes Status: Chronic Plan: Will continue to adjust medication for better control. Qualifiers: Hypertension type: essential hypertension Qualified Code(s): I10 - Essential (primary) hypertension (6) Pneumonia Onset Date: 05/06/18 Current Visit: Yes Status: Acute Plan: Continue with medication. Qualifiers: Pneumonia type: due to unspecified organism Laterality: bilateral Lung location: lower lobe of lung Qualified Code(s): J18.1 - Lobar pneumonia, unspecified organism (7) Tobacco abuse Current Visit: Yes Status: Chronic Plan: Address cessation. Discharge Plan: Home Plan to discharge in: 24 Hours - Code Status/Comfort Care Code Status Assessed: Yes Code Status: Full Code Time Spent Managing Pts Care (In Minutes): 55
--- NOTE | 2018-05-06 16:56 | ECHO ---
HEIGHT: 5 ft 5 in WEIGHT: 199 lb 1 oz DATE OF STUDY: 05/06/[address]: Oh Varma DO 2-DIMENSIONAL: YES M.MODE: YES DOPPLER: YES COLOR FLOW: YES TDS: YES PORTABLE: DEFINITY: BUBBLE STUDY: DIAGNOSIS: HYPERTENTION, SHORTNESS OF BREATH. CARDIAC HISTORY: CATHERIZATION: NO SURGERY: NO PROSTHETIC VALVE: NO PACEMAKER: NO MEASUREMENTS (cm) DIASTOLIC (NORMALS) SYSTOLIC (NORMALS) IVSd 1.0 (0.6-1.2) LA Diam 3.0 (1.9-4.0) LVEF 54% LVIDd 4.7 (3.5-5.7) LVIDs 3.4 (2.0-3.5) %FS 28% LVPWd 0.9 (0.6-1.2) Ao Diam 2.4 (2.0-3.7) 2 DIMENSIONAL ASSESSMENT: RIGHT ATRIUM: NORMAL LEFT ATRIUM: NORMAL RIGHT VENTRICLE: NORMAL LEFT VENTRICLE: NORMAL TRICUSPID VALVE: NORMAL MITRAL VALVE: NORMAL PULMONIC VALVE: NORMAL AORTIC VALVE: NORMAL PERICARDIAL EFFUSION: NONE AORTIC ROOT: NORMAL LEFT VENTRICULAR WALL MOTION: NORMAL DOPPLER/COLOR FLOW: NORMAL COMMENTS: NORMAL TWO DIMENSIONAL ECHOCARDIOGRAM WITH DOPPLER TECHNOLOGIST: VICKIE BROOKS
[2018-05-06] MEDS: ENOXAPARIN 40 MG/0.4 ML SQ SCH (17:40)
[2018-05-06] MEDS: THIAMINE HCL 100 MG TABLET PO SCH (17:40)
[2018-05-06] MEDS: FOLIC ACID 1 MG TABLET PO SCH (17:40)
[2018-05-06] MEDS: METOPROLOL TAR 50 MG TAB PO SCH (17:40)
[2018-05-06] MEDS: LORAZEPAM 1 MG TABLET PO PRN (21:08)
[2018-05-06] MEDS: predniSONE 20 MG TAB PO SCH (21:08)
[2018-05-07] MEDS: PIPER/TAZO/NS 3.375gm 3.375 GM/100 ML BAG IVPB SCH ×3 (00:27→17:12)
[2018-05-07] MEDS: IPRATROPIUM BROM 0.5MG/2.5ML NEB SCH ×4 (01:30→19:56)
[2018-05-07 04:52] LABS: Hematocrit 48.1 % (39.6-49.0); MCH 33.3 pg (27.0-35.0); MCV 99.9 fL (80-100); MPV 9.4 fL (7.6-11.3); RBC Red Blood Cell Count 4.82 M/uL (4.33-5.43)
[2018-05-07] MEDS: METOPROLOL TAR 50 MG TAB PO SCH ×2 (05:35→17:13)
[2018-05-07] MEDS: PANTOPRAZOLE 40MG TABLET PO SCH (05:35)
[2018-05-07] MEDS: ARFORMOTEROL TARTRATE 15 MCG/2 ML VIAL.NEB NEB SCH ×2 (07:57→19:56)
[2018-05-07 08:13] LABS: Urine Appearance CLEAR; Urine Bilirubin NEGATIVE (NEG); Urine Blood NEGATIVE (NEG); Urine Color YELLOW; Urine Glucose TRACE (NEG); Urine Protein NEGATIVE (NEG); Urine Specific Gravity 1.025 (1.005-1.030); Urine Urobilinogen 0.2 mg/dL (0.2-1.0); Urine pH 6.5 (5.0-7.0)
--- NOTE | 2018-05-07 08:23 | P.PN ---
Subjective Date of Service: 05/07/18 Primary Care Provider: Out of State([place]) Chief Complaint: COPD exacerbation alcohol withdrawal Subjective: Improving Physical Examination - Vital Signs Temperature: 97.2 F Blood Pressure: 152/84 Pulse: 82 Respirations: 18 Pulse Ox (%): 98 - Physical Exam General: Alert, In no apparent distress, Oriented x3, Cooperative HEENT: Atraumatic, Mucous membr. moist/pink Neck: Supple Respiratory: Expiratory wheezes (Bilateral, improved) Cardiovascular: Normal pulses, Regular rate/rhythm Gastrointestinal: Normal bowel sounds, Soft and benign, Non-distended, No tenderness, No masses, No rebound, No guarding Musculoskeletal: No erythema, No tenderness, No warmth Integumentary: No tenderness/swelling, No erythema, No warmth, No cyanosis Neurological: Normal speech, Normal strength at 5/5 x4 extr, Normal tone, Normal affect - Studies Medications List Reviewed: Yes Assessment & Plan - Problems (Diagnosis) (1) Obesity Current Visit: Yes Status: Chronic Plan: Will continue to address lifestyle modification education. Qualifiers: Obesity type: due to excess calories Obesity classification: adult class 1 (BMI 30 - 34.9) Serious obesity comorbidity presence: with serious comorbidity Body mass index: BMI 33.0-33.9 Qualified Code(s): E66.09 - Other obesity due to excess calories; Z68.33 - Body mass index (BMI) 33.0-33.9, adult (2) GERD (gastroesophageal reflux disease) Current Visit: Yes Status: Suspected Plan: Will continue with PPI. Qualifiers: Esophagitis presence: esophagitis presence not specified Qualified Code(s) : K21.9 - Gastro-esophageal reflux disease without esophagitis (3) Alcohol abuse Onset Date: 05/06/18 Current Visit: Yes Status: Chronic Plan: Will continue to address alcohol cessation. Will monitor for alcohol withdrawal. (4) COPD (chronic obstructive pulmonary disease) Onset Date: 05/06/18 Current Visit: Yes Status: Acute Plan: Continue with COPD treatment. Will continue to wean off oxygen. Patient may require home oxygen. The patient plans to go back to his home state [facility] after hospitalization. Will check with social sciences instructor to see what options are available for help in assistance. Patient may require oxygen at discharge. This may be difficult to travel. Will review options. Encourage ambulation. Will discuss with pulmonology concerning plan of care. Qualifiers: COPD type: COPD with acute exacerbation Qualified Code(s): J44.1 - Chronic obstructive pulmonary disease with (acute) exacerbation (5) Hypertension Onset Date: 05/06/18 Current Visit: Yes Status: Chronic Plan: Will continue to adjust medication for better control. Qualifiers: Hypertension type: essential hypertension Qualified Code(s): I10 - Essential (primary) hypertension (6) Pneumonia Onset Date: 05/06/18 Current Visit: Yes Status: Acute Plan: Continue with medication. Qualifiers: Pneumonia type: due to unspecified organism Laterality: bilateral Lung location: lower lobe of lung Qualified Code(s): J18.1 - Lobar pneumonia, unspecified organism (7) Tobacco abuse Current Visit: Yes Status: Chronic Plan: Address cessation. (8) Obstructive sleep apnea Current Visit: Yes Status: Suspected Plan: This will need to be further evaluated as an outpatient. Patient will need sleep study. Discharge Plan: Home Plan to discharge in: 24 Hours Time Spent Managing Pts Care (In Minutes): 55
[2018-05-07 08:25] LABS: Urine Microscopic Reflex ORDER UMIC
[2018-05-07 08:38] LABS: Urine Bacteria NONE SEEN /HPF (NONE SEEN); Urine Culture Reflex Order NOT NEEDED; Urine RBC <5 /HPF (NONE SEEN)
[2018-05-07] MEDS: THIAMINE HCL 100 MG TABLET PO SCH (08:57)
[2018-05-07] MEDS: SPIRONOLACTONE 25 MG TABLET PO SCH (08:57)
[2018-05-07] MEDS: FOLIC ACID 1 MG TABLET PO SCH (08:58)
[2018-05-07] MEDS: ASPIRIN EC 81 MG TAB PO SCH (08:58)
[2018-05-07] MEDS: predniSONE 20 MG TAB PO SCH ×2 (08:58→20:27)
[2018-05-07] MEDS: MULTIVITAMIN TAB PO SCH (08:58)
[2018-05-07] MEDS: LISINOPRIL 20 MG TAB PO SCH ×2 (09:00→20:27)
[2018-05-07] MEDS: ENOXAPARIN 40 MG/0.4 ML SQ SCH (17:14)
[2018-05-07] MEDS: LORAZEPAM 1 MG TABLET PO PRN (20:32)
[2018-05-07] MEDS: DULERA 200/5 (MOMETASONE/FORMOTEROL) INHALER IH SCH (20:33)
[2018-05-08] MEDS: PIPER/TAZO/NS 3.375gm 3.375 GM/100 ML BAG IVPB SCH ×3 (00:44→16:33)
[2018-05-08] MEDS: IPRATROPIUM BROM 0.5MG/2.5ML NEB SCH ×4 (01:09→20:05)
[2018-05-08] MEDS: ALBUTEROL 2.5 MG/3 ML NEB SOL NEB PRN (01:11)
[2018-05-08] MEDS: PANTOPRAZOLE 40MG TABLET PO SCH (05:34)
[2018-05-08] MEDS: METOPROLOL TAR 50 MG TAB PO SCH ×2 (05:34→17:27)
[2018-05-08] MEDS: ARFORMOTEROL TARTRATE 15 MCG/2 ML VIAL.NEB NEB SCH ×2 (07:45→20:05)
[2018-05-08] MEDS: DULERA 200/5 (MOMETASONE/FORMOTEROL) INHALER IH SCH ×2 (09:00→20:46)
[2018-05-08] MEDS: MULTIVITAMIN TAB PO SCH (09:42)
[2018-05-08] MEDS: predniSONE 20 MG TAB PO SCH ×2 (09:43→20:44)
[2018-05-08] MEDS: SPIRONOLACTONE 25 MG TABLET PO SCH (09:43)
[2018-05-08] MEDS: ASPIRIN EC 81 MG TAB PO SCH (09:43)
[2018-05-08] MEDS: LISINOPRIL 20 MG TAB PO SCH ×2 (09:44→20:46)
[2018-05-08] MEDS: FOLIC ACID 1 MG TABLET PO SCH (09:44)
[2018-05-08] MEDS: THIAMINE HCL 100 MG TABLET PO SCH (09:44)
--- NOTE | 2018-05-08 10:36 | P.PN ---
Subjective Date of Service: 05/08/18 Primary Care Provider: Out of State([place]) Chief Complaint: COPD exacerbation alcohol withdrawal Subjective: Doing well Physical Examination - Vital Signs Temperature: 97 F Blood Pressure: 149/75 Pulse: 78 Respirations: 20 Pulse Ox (%): 97 - Physical Exam General: Alert, In no apparent distress, Oriented x3, Cooperative HEENT: Atraumatic Neck: Supple Respiratory: Clear to auscultation bilaterally Cardiovascular: Normal pulses, Regular rate/rhythm Gastrointestinal: Normal bowel sounds, Soft and benign, Non-distended, No tenderness, No masses, No rebound, No guarding Musculoskeletal: No erythema, No tenderness, No warmth Integumentary: No erythema, No warmth, No cyanosis Neurological: Normal speech, Normal strength at 5/5 x4 extr, Normal tone, Normal affect - Studies Medications List Reviewed: Yes Assessment & Plan - Problems (Diagnosis) (1) Obesity Current Visit: Yes Status: Chronic Plan: Will continue to address lifestyle modification education. Qualifiers: Obesity type: due to excess calories Obesity classification: adult class 1 (BMI 30 - 34.9) Serious obesity comorbidity presence: with serious comorbidity Body mass index: BMI 33.0-33.9 Qualified Code(s): E66.09 - Other obesity due to excess calories; Z68.33 - Body mass index (BMI) 33.0-33.9, adult (2) GERD (gastroesophageal reflux disease) Current Visit: Yes Status: Suspected Plan: Will continue with PPI. Qualifiers: Esophagitis presence: esophagitis presence not specified Qualified Code(s) : K21.9 - Gastro-esophageal reflux disease without esophagitis (3) Alcohol abuse Onset Date: 05/06/18 Current Visit: Yes Status: Chronic Plan: Will continue to address alcohol cessation. Will monitor for alcohol withdrawal. (4) COPD (chronic obstructive pulmonary disease) Onset Date: 05/06/18 Current Visit: Yes Status: Acute Plan: Continue with COPD treatment. Will continue to wean off oxygen. Patient may require home oxygen. The patient plans to go back to his home state [facility] after hospitalization. Discussed options of care. He is agreeable to go to SNF for improvement and rehab. Await approval for SNF. Qualifiers: COPD type: COPD with acute exacerbation Qualified Code(s): J44.1 - Chronic obstructive pulmonary disease with (acute) exacerbation (5) Hypertension Onset Date: 05/06/18 Current Visit: Yes Status: Chronic Plan: Will continue to adjust medication for better control. Qualifiers: Hypertension type: essential hypertension Qualified Code(s): I10 - Essential (primary) hypertension (6) Pneumonia Onset Date: 05/06/18 Current Visit: Yes Status: Acute Plan: Continue with medication. Qualifiers: Pneumonia type: due to unspecified organism Laterality: bilateral Lung location: lower lobe of lung Qualified Code(s): J18.1 - Lobar pneumonia, unspecified organism (7) Tobacco abuse Current Visit: Yes Status: Chronic Plan: Address cessation. (8) Obstructive sleep apnea Current Visit: Yes Status: Suspected Plan: This will need to be further evaluated as an outpatient. Patient will need sleep study. Discharge Plan: Other (SNF) Plan to discharge in: 24 Hours Time Spent Managing Pts Care (In Minutes): 55
[2018-05-08] MEDS: ENOXAPARIN 40 MG/0.4 ML SQ SCH (16:32)
[2018-05-08] MEDS: LORAZEPAM 1 MG TABLET PO PRN (20:42)
[2018-05-09] MEDS: PIPER/TAZO/NS 3.375gm 3.375 GM/100 ML BAG IVPB SCH ×2 (00:39→09:43)
[2018-05-09] MEDS: IPRATROPIUM BROM 0.5MG/2.5ML NEB SCH ×2 (01:30→07:23)
[2018-05-09] MEDS: PANTOPRAZOLE 40MG TABLET PO SCH (05:39)
[2018-05-09] MEDS: METOPROLOL TAR 50 MG TAB PO SCH (05:39)
[2018-05-09] MEDS: ARFORMOTEROL TARTRATE 15 MCG/2 ML VIAL.NEB NEB SCH (07:23)
--- NOTE | 2018-05-09 08:57 | P.PN ---
Subjective Date of Service: 05/09/18 Primary Care Provider: Out of State([place]) Chief Complaint: COPD exacerbation alcohol withdrawal Subjective: Improving Physical Examination - Vital Signs Temperature: 96.5 F Blood Pressure: 134/88 Pulse: 70 Respirations: 18 Pulse Ox (%): 99 - Physical Exam General: Alert, In no apparent distress, Cooperative HEENT: Atraumatic, Mucous membr. moist/pink Neck: Supple Respiratory: Expiratory wheezes (Mild bilateral) Cardiovascular: Normal pulses, Regular rate/rhythm Gastrointestinal: Normal bowel sounds, Soft and benign, Non-distended, No tenderness, No masses, No rebound, No guarding Musculoskeletal: No erythema, No tenderness, No warmth Integumentary: No tenderness/swelling, No erythema, No warmth, No cyanosis Neurological: Normal speech, Normal strength at 5/5 x4 extr, Normal tone, Normal affect - Studies Microbiology Data (last 24 hrs): 05/03/18 13:15 Blood - Blood Aerobic Blood Culture - Final No growth in 5 days. 05/03/18 13:15 Blood - Blood Anaerobic Blood Culture - Final No growth in 5 days. 05/03/18 12:50 Blood - Blood Aerobic Blood Culture - Final No growth in 5 days. 05/03/18 12:50 Blood - Blood Anaerobic Blood Culture - Final No growth in 5 days. Medications List Reviewed: Yes Assessment & Plan - Problems (Diagnosis) (1) Obesity Current Visit: Yes Status: Chronic Plan: Will continue to address lifestyle modification education. Qualifiers: Obesity type: due to excess calories Obesity classification: adult class 1 (BMI 30 - 34.9) Serious obesity comorbidity presence: with serious comorbidity Body mass index: BMI 33.0-33.9 Qualified Code(s): E66.09 - Other obesity due to excess calories; Z68.33 - Body mass index (BMI) 33.0-33.9, adult (2) GERD (gastroesophageal reflux disease) Current Visit: Yes Status: Suspected Plan: Will continue with PPI. Qualifiers: Esophagitis presence: esophagitis presence not specified Qualified Code(s) : K21.9 - Gastro-esophageal reflux disease without esophagitis (3) Alcohol abuse Onset Date: 05/06/18 Current Visit: Yes Status: Chronic Plan: Will continue to address alcohol cessation. Will monitor for alcohol withdrawal. (4) COPD (chronic obstructive pulmonary disease) Onset Date: 05/06/18 Current Visit: Yes Status: Acute Plan: Continue with COPD treatment. Await skilled facility placement. Qualifiers: COPD type: COPD with acute exacerbation Qualified Code(s): J44.1 - Chronic obstructive pulmonary disease with (acute) exacerbation (5) Hypertension Onset Date: 05/06/18 Current Visit: Yes Status: Chronic Plan: Will continue to adjust medication for better control. Qualifiers: Hypertension type: essential hypertension Qualified Code(s): I10 - Essential (primary) hypertension (6) Pneumonia Onset Date: 05/06/18 Current Visit: Yes Status: Acute Plan: Continue with medication. Qualifiers: Pneumonia type: due to unspecified organism Laterality: bilateral Lung location: lower lobe of lung Qualified Code(s): J18.1 - Lobar pneumonia, unspecified organism (7) Tobacco abuse Current Visit: Yes Status: Chronic Plan: Address cessation. (8) Obstructive sleep apnea Current Visit: Yes Status: Suspected Plan: This will need to be further evaluated as an outpatient. Patient will need sleep study. Discharge Plan: Other (Skilled facility placement) Plan to discharge in: 24 Hours Time Spent Managing Pts Care (In Minutes): 55
[2018-05-09] MEDS: ASPIRIN EC 81 MG TAB PO SCH (09:00)
[2018-05-09] MEDS: DULERA 200/5 (MOMETASONE/FORMOTEROL) INHALER IH SCH (09:00)
[2018-05-09] MEDS: THIAMINE HCL 100 MG TABLET PO SCH (09:42)
[2018-05-09] MEDS: MULTIVITAMIN TAB PO SCH (09:42)
[2018-05-09] MEDS: FOLIC ACID 1 MG TABLET PO SCH (09:42)
[2018-05-09] MEDS: SPIRONOLACTONE 25 MG TABLET PO SCH (09:43)
[2018-05-09] MEDS: predniSONE 20 MG TAB PO SCH (09:43)
[2018-05-09] MEDS: LISINOPRIL 20 MG TAB PO SCH (09:43)
--- NOTE | 2018-05-09 12:27 | P.DS ---
Admission Date: 05/03/18 Discharge Date: 05/09/18 Primary Care Provider: Out of State([place]) Disposition: ROUTINE DISCHARGE Discharge Condition: GOOD Reason for Admission: COPD exacerbation alcohol withdrawal Consultations: Pulmonary-Dr. Hicks Procedures: CT scan showed no pulmonary embolism. Atypical pneumonia noted. - Problems (1) Obesity Current Visit: Yes Status: Chronic Qualifiers: Obesity type: due to excess calories Obesity classification: adult class 1 (BMI 30 - 34.9) Serious obesity comorbidity presence: with serious comorbidity Body mass index: BMI 33.0-33.9 Qualified Code(s): E66.09 - Other obesity due to excess calories; Z68.33 - Body mass index (BMI) 33.0-33.9, adult (2) GERD (gastroesophageal reflux disease) Current Visit: Yes Status: Suspected Qualifiers: Esophagitis presence: esophagitis presence not specified Qualified Code(s) : K21.9 - Gastro-esophageal reflux disease without esophagitis (3) Alcohol abuse Onset Date: 05/06/18 Current Visit: Yes Status: Chronic (4) COPD (chronic obstructive pulmonary disease) Onset Date: 05/06/18 Current Visit: Yes Status: Acute Qualifiers: COPD type: COPD with acute exacerbation Qualified Code(s): J44.1 - Chronic obstructive pulmonary disease with (acute) exacerbation (5) Hypertension Onset Date: 05/06/18 Current Visit: Yes Status: Chronic Qualifiers: Hypertension type: essential hypertension Qualified Code(s): I10 - Essential (primary) hypertension (6) Pneumonia Onset Date: 05/06/18 Current Visit: Yes Status: Acute Qualifiers: Pneumonia type: due to unspecified organism Laterality: bilateral Lung location: lower lobe of lung Qualified Code(s): J18.1 - Lobar pneumonia, unspecified organism (7) Tobacco abuse Current Visit: Yes Status: Chronic (8) Obstructive sleep apnea Current Visit: Yes Status: Suspected Brief History of Present Illness: 52 yo CM presented to the ER with continued SOB. He was seen at a clinic for cough and SOB. He was given 2 rounds of antibiotics-CIpro then Omnicef. He was evaluated in the ER. He was found to have COPD exacerbation. He has HTN, Alcohol and tobacco abuse. Hospital Course: Patient presented with shortness of breath secondary to COPD exacerbation and atypical pneumonia. The patient was treated for this. Patient seen by Pulmonary. He did well during the course of his stay. He is from [place]. At one point, social work was working to get him to a Skilled facility to continue his care and rehab. Insurance denied this as he was improving. At discharge he did not require oxygen. He was able to ambulate. Pulmonary made adjustments to his medication. Compliance with medication was addressed in detail. At discharge, he will continue with Levaquin 500 mg one pill daily for 5 days. He will also continue with Prednisone 20 mg one pill twice daily for 5 days then one pill daily for 5 days. For his COPD, He will continue with Dulera 200 mcg 2 puffs twice daily and Proair HFA 2 puffs every 8 hours as needed for SOB. Recommendation is for the patient to recheck CXR in 2-4 weeks to monitor resolution. Recommendation is to follow up with Pulmonary in 1-2 weeks to follow up his care and condition. He will need to continue with 1500 cc per day fluid restriction and salt restriction. At discharge he will continue with Aldactone 25 mg one pill every day. Recommendation to recheck Lab-BMP in 1 week to monitor his progress. Patient has HTN. Medication was added during his stay for better control. Recommendation is to maintain his BP less than 150/80. At discharge he will continue with Lisinopril 20 mg one pill twice daily, Aldactone 25 mg one pill daily, and Metoprolol 50 mg one pill twice daily. Further adjustment in medication can be done by his PCP. Patient has GERD. At dischare he will continue with Protonix 40 mg daily. He may follow up with GI as outpatient. There was a concern for alcohol withdraw but the patient did well. He admits to alcohol and tobacco abuse. Alcohol and tobacco cessation addressed. At discharge he will continue with Thiamine 100 mg one pill daily and Folic acid 1 mg one pill daily. Cessation will need to be stressed as outpatient. Patient likely has Obstructive sleep apnea. Recommendation is for the patient to follow up with Pulmonary to further evaluate and address. Lifestyle modifications addressed. He plans to go back to [place] Vital Signs/Physical Exam: Temp Pulse Resp BP Pulse Ox 96.8 F 83 16 140/86 95 05/09/18 11:54 05/09/18 11:54 05/09/18 11:54 05/09/18 11:54 05/09/18 11:54 General: Alert, In no apparent distress, Oriented x3, Cooperative HEENT: Atraumatic, Mucous membr. moist/pink Neck: Supple, No Thyromegaly Respiratory: Expiratory wheezes (Mild bilaterally) Cardiovascular: Normal pulses, Regular rate/rhythm Gastrointestinal: Normal bowel sounds, No ascites, No tenderness, No masses, No rebound, No guarding Musculoskeletal: No erythema, No tenderness, No warmth Integumentary: No tenderness/swelling, No erythema, No warmth, No cyanosis Neurological: Normal speech, Normal strength at 5/5 x4 extr, Normal tone, Normal affect Laboratory Data at Discharge: WBC 16.2 K/uL (4.3-10.9) H D 05/07/18 04:28 Hgb 16.0 g/dL (13.6-17.9) 05/07/18 04:28 Hct 48.1 % (39.6-49.0) 05/07/18 04:28 Plt Count 171 K/uL (152-406) 05/07/18 04:28 PT 12.6 SECONDS (9.5-12.5) H 05/03/18 12:50 INR 1.07 05/03/18 12:50 APTT 28.5 SECONDS (24.3-36.9) 05/03/18 12:50 Sodium 138 mEq/L (135-145) 05/06/18 04:23 Potassium 4.7 mEq/L (3.6-5.0) 05/06/18 04:23 BUN 29 mg/dL (6-20) H 05/06/18 04:23 Creatinine 1.03 mg/dL (0.61-1.24) 05/06/18 04:23 Glucose 173 mg/dL (65-120) H 05/06/18 04:23 Magnesium 2.2 mg/dL (1.8-2.5) 05/03/18 12:50 Total Bilirubin 0.5 mg/dL (0.3-1.2) 05/06/18 04:23 AST 29 IU/L (10-42) 05/06/18 04:23 ALT 51 IU/L (10-60) 05/06/18 04:23 Alkaline Phosphatase 102 IU/L (42-121) 05/06/18 04:23 Troponin I < 0.03 ng/mL (<0.03) 06/16/18 01:44 B-Natriuretic Peptide 13 pg/ml (<=100) 05/04/18 04:19 Home Medications: Albuterol Inhaler [Ventolin Inhaler*] 2 puff IH Q6H PRN #1 hfa.aer.ad 05/09/18 Aspirin [Aspirin EC 81 MG] 81 mg PO DAILY #90 tablet. 05/09/18 Lisinopril [Prinivil*] 20 mg PO BID #60 tab 05/09/18 Metoprolol Tartrate [Lopressor*] 50 mg PO BID 6AM 6PM #60 tab 05/09/18 Mometasone/Formoterol [Dulera 200 Mcg/5 Mcg Inhaler] 2 puff IH BID #1 inhaler Multivit,Ther Iron,Ca,FA & Min [Centrum Tablet*] 1 tab PO DAILY #90 tab Pantoprazole [Protonix Tab*] 40 mg PO DAILYAC #30 tab 05/09/18 Spironolactone [Aldactone*] 25 mg PO DAILY #30 tab 05/09/18 Thiamine HCl [Vitamin B-1*] 100 mg PO DAILY #30 tablet 05/09/18 levoFLOXacin [Levaquin] 500 mg PO DAILY #5 tab 05/09/18 predniSONE [Prednisone*] 20 mg PO SEECOM #15 tab 05/09/18 New Medications: Albuterol Inhaler [Ventolin Inhaler*] 2 puff IH Q6H PRN #1 hfa.aer.ad PRN Reason: Shortness Of Breath Aspirin [Aspirin EC 81 MG] 81 mg PO DAILY #90 tablet. levoFLOXacin [Levaquin] 500 mg PO DAILY #5 tab Lisinopril [Prinivil*] 20 mg PO BID #60 tab Metoprolol Tartrate [Lopressor*] 50 mg PO BID 6AM 6PM #60 tab Mometasone/Formoterol [Dulera 200 Mcg/5 Mcg Inhaler] 2 puff IH BID #1 inhaler Multivit,Ther Iron,Ca,FA & Min [Centrum Tablet*] 1 tab PO DAILY #90 tab Pantoprazole [Protonix Tab*] 40 mg PO DAILYAC #30 tab predniSONE [Prednisone*] 20 mg PO SEECOM #15 tab Spironolactone [Aldactone*] 25 mg PO DAILY #30 tab Thiamine HCl [Vitamin B-1*] 100 mg PO DAILY #30 tablet Patient Discharge Instructions: 1. Patient will need to follow up with PCP in 1 week to follow up hospitalization. 2. Patient presented with shortness of breath secondary to COPD exacerbation and pneumonia. He was denied to go to a skilled facility. Patient seen by Pulmonary. At discharge he did not require oxygen. At discharge, he will continue with Levaquin 500 mg one pill daily for 5 days. He will also continue with Prednisone 20 mg one pill twice daily for 5 days then one pill daily for 5 days. For his COPD, He will continue with Dulera 200 mcg 2 puffs twice daily and Proair HFA 2 puffs every 8 hours as needed for SOB. Recommendation is for the patient to recheck CXR in 2-4 weeks to monitor resolution. Recommendation is to follow up with Pulmonary in 1-2 weeks to follow up his care and condition. 3. He will need to continue with 1500 cc per day fluid restriction and salt restriction. At discharge he will continue with Aldactone 25 mg one pill every day. Recommendation to recheck Lab- BMP in 1 week to monitor his progress. 4. Patient has HTN. Recommendation is to maintain his BP less than 150/80. New medication has been added. At discharge he will continue with Lisinopril 20 mg one pill twice daily, Aldactone 25 mg one pill daily, and Metoprolol 50 mg one pill twice daily. Further adjustment in medication can be done by his PCP. 5. Patient has GERD. At dischare he will continue with Protonix 40 mg daily. He may follow up with GI as outpatient. 6. Alcohol and tobacco cessation addressed. At discharge he will continue with Thiamine 100 mg one pill daily and Folic acid 1 mg one pill daily. 7. Patient likely has Obstructive sleep apnea. Recommendation is for the patient to follow up with Pulmonary to further evaluate and address. Diet: AHA Activity: Ad sandip Time spent managing pt's care (in minutes): 55
== END 2018-05-09 13:15 | disposition home or self-care (01) | DRG 190 ==
LOC: ER 11:56 → INTOOBSV 15:59 → OBSVTOIN 15:59 → ERHOLD 15:59 → 2ND 20:10 → 4TH 05-07 16:47
PROVIDERS: ADMIT Internal Medicine Sleep Medicine; ATTEND Family Medicine
DX: J44.0 Chronic obstructive pulmonary disease with (acute) lower respiratory infection (principal); J18.9 Pneumonia, unspecified organism; J44.1 Chronic obstructive pulmonary disease with (acute) exacerbation; E66.09 Other obesity due to excess calories; Z68.33 Body mass index [BMI] 33.0-33.9, adult; K21.9 Gastro-esophageal reflux disease without esophagitis; F10.10 Alcohol abuse, uncomplicated; I10 Essential (primary) hypertension; G47.33 Obstructive sleep apnea (adult) (pediatric); Z79.82 Long term (current) use of aspirin; F17.210 Nicotine dependence, cigarettes, uncomplicated
CPT/HCPCS: 36415; 71045; 71046; 71275; 80048; 80053; 80076; 81003; 81015; 82550; 82553; 83735; 83880; 84443; 84484; 85025; 85027; 85610; 85730; 87040; 87070; 87086; 87088; 87205; 90670; 93005; 93306; 94640; 94660; 94760; 96374; 96375; 97163; 99285; G0009; J0360; J0696; J1650; J2543; J2920; J2930; J3411; J7030; J7512; J7605; J7606; Q9967